=== PATIENT | female | born 1970 | race Caucasian/White ===

== ENCOUNTER → 2017-02-14 | Outpatient (CLI) | payer BC ==
[~2017-02-14] MED LIST: ALBU1AER9 INH; ASPI-390 PO; MONT1TAB3 PO; OMEP20CA59 PO; RIZA10TA19 PO; SYMIN160 INH; TOPI25TA55 PO
--- NOTE | 2017-02-14 16:40 | MAMMOGRAPHY REPORT ---
BILATERAL DIGITAL SCREENING MAMMOGRAM TOMOSYNTHESIS WITH CAD: 02/14/2017 CLINICAL HISTORY: Routine screening. Patient has no complaints. TECHNIQUE: Breast tomosynthesis in addition to standard 2D mammography was performed. Current study was also evaluated with a Computer Aided Detection (CAD) system. COMPARISON: Comparison is made to exams dated: 12/04/2015 mammogram, 07/28/2015 mammogram, 12/25/2014 m ammogram, 12/16/2014 mammogram, 12/02/2014 mammogram, and 07/10/2013 mammogram - [facility]. BREAST COMPOSITION: There are scattered areas of fibroglandular density in both breasts. FINDINGS: There is a stable ribbon shaped metallic biopsy marker in the upper outer middle one third of the left breast. No new suspicious mass, architectural distortion or cluster of microcalcificat ions is seen. IMPRESSION: ACR BI-RADS CATEGORY 1: NEGATIVE There is no mammographic evidence of malignancy. A 1 year screening mammogram is recommended. The p atient will receive written notification of the results. Approximately 10% of breast cancers are not detected with mammography. A negative mammographic repor t should not delay biopsy if a clinically suggestive mass is present. Yaa Quezada M.D. ay/:02/14/2017 16:00:23 Concrete Curer: Yudith CYR(Xenia)(Quentin)(BD), [facility] letter sent: Normal 1/2 BI-RADS Code: ACR BI-RADS Category 1: Negative
== END | disposition home or self-care (01) ==
LOC: C.MAMM 10:43
PROVIDERS: ATTEND Family Medicine
DX: Z12.31 Encounter for screening mammogram for malignant neoplasm of breast (principal)

== ENCOUNTER → 2017-09-28 | Outpatient (CLI) | payer OTHER ==
--- NOTE | 2017-09-28 15:24 | DIAGNOSTIC IMAGING REPORT ---
L HIP UNILATERAL 2 VIEWS CLINICAL HISTORY: L GROIN PAIN pain COMPARISON: None. DISCUSSION: The bones and joint spaces appear intact. There is no evidence of fracture, dislocation or bony disease. There is no evidence for soft tissue swelling. IMPRESSION: Negative study. The above report was generated using voice recognition software. It may contain grammatical, syntax or spelling errors. Electronically signed by: Cy Mitchell M.D. 09/28/2017 3:23 PM Dictated Date/Time: 09/28/2017 3:22 PM
== END | disposition home or self-care (01) ==
LOC: C.RAD1850 15:05
PROVIDERS: ATTEND Family Medicine
DX: R10.32 Left lower quadrant pain (principal)

== ENCOUNTER 2019-06-04 04:38 | Observation (INO) ==
[2019-06-04] MEDS ORDERED: MoRPHine SULFATE 10 MG/ML CARP/VIAL IV STA (04:56)
[2019-06-04] MEDS ORDERED: ONDANSETRON INJ 2 MG/ML 2 ML VIAL IV STA (04:56)
[2019-06-04] MEDS ORDERED: SODIUM CHLORIDE 0.9% 1000ML 1,000 ML IV ONE (04:56)
--- NOTE | 2019-06-04 05:02 | Emergency Department Note ---
History of Present Illness General Chief complaint: Chest Pain Stated complaint: CHEST PAIN, SOB Source: patient Mode of arrival: ambulatory Limitations: no limitations History of Present Illness Maximum Pain Intensity: 9 This patient is a 48-year-old female who presents to the emergency department complaining of chest pain. Patient states that the pain woke her up from sleep 4 hours ago. She states the pain is a pressure squeezing sensation in her chest and radiates into the upper abdomen. She rates the discomfort a 9/10. She states she is somewhat dizzy and short of breath due to the pain. She states th at she had a similar episode of symptoms 2 weeks ago which lasted for a few hours and then resolved on its own. She has not taken any medications at home. She denies any other episodes of pain. She states that both episodes have occurred in the middle of the night. Patient has a history of asthma but is otherwise healthy. She reports a recent intentional weight loss of 50 pounds. She is not a smoker. She denies recent travel. She states that nothing makes the pain better or worse. She reports a family history of stroke in her father and 2 grandparents. She denies any nausea/vomiting or fevers. Home Medications Home Medications Medication Instructions Recorded Confirmed Type albuterol sulfate 2 puff INHALATION Q4 PRN 06/04/19 06/04/19 History albuterol sulfate 2.5 mg INHALATION DIRECTED PRN 06/04/19 06/04/19 History [id number]-[id number] 2 tab PO Q6H PRN 06/04/19 06/04/19 History [Excedrin Migraine] Allergies Allergy/AdvReac Type Severity Reaction Status Date / Time Penicillins Allergy Intermediate hives Verified 06/04/19 05:06 aspirin AdvReac Mild nose bleeds Verified 06/04/19 05:06 Past Med/Surg History Medical History Asthma H/O: hysterectomy Family History Father Stroke Social History Preferred Language: Salvadorean Communication Ability: Effective Kiln Setter Required: No Beliefs That Will Affect Care: None Current Living Situation: Spouse and Family Feels Safe at Home: Yes Smoking Status: Never smoker Second Hand Exposure: No ; Hx Alcohol Use: No Hx Substance Use: No Review of Systems A total of 10 systems reviewed and were otherwise negative Physical Exam Vital Signs Vital Signs - 24 hr 06/04/19 06:03 Pulse Rate [Apical] 64 Respiratory Rate 16 Blood Pressure [Left Arm] 117/44 L Blood Pressure Mean [Left Arm] 68 VITALS: Vitals are noted on the nurse's note and reviewed by myself. Vital signs stable. GENERAL: This is a 48-year-old female, in no acute distress, nondiaphoretic, well-developed well-nourished. SKIN: The skin was without rashes. EARS: External auditory canals clear, tympanic membranes pearly ferguson without erythema or effusion bilaterally. EYES: Pupils equal round and reactive to light and accommodation. MOUTH: Mucous membranes moist. Tonsils are not enlarged. Pharynx without erythema or exudate. NECK: Supple without nuchal rigidity. No lymphadenopathy. HEART: Regular rate and rhythm without murmurs gallops or rubs. LUNGS: Clear to auscultation bilaterally without wheezes, rales or rhonchi. No retractions or accessory muscle use. ABDOMEN: Positive bowel sounds x 4. Patient has significant tenderness to palpation in the right upper quadrant and epigastric region. No guarding or rebound tenderness. NEURO: Patient was alert and oriented to person place and time. Course Administered Medications Acetaminophen (Tylenol) 650 mg PO Q4H PRN PRN Reason: pain/fever Stop: 07/04/19 07:30 Last Admin: 06/04/19 23:46 Dose: 650 mg Documented by: [id number] Lactated Ringer's (Lr) 1,000 mls @ 125 mls/hr IV .Q8H HORACIO Stop: 07/04/19 07:30 Last Admin: 06/05/19 03:23 Dose: 125 mls/hr Documented by: [id number] Infusion: 06/05/19 03:23 Dose: 125 mls/hr Documented by: [id number] Admin: 06/04/19 19:23 Dose: 125 mls/hr Documented by: [id number] Infusion: 06/04/19 16:39 Dose: 125 mls/hr Documented by: [id number] Admin: 06/04/19 08:39 Dose: 125 mls/hr Documented by: [id number] Morphine Sulfate (Morphine Sulfate) 4 mg IV Q1H PRN PRN Reason: Pain Stop: 06/18/19 18:19 Last Admin: 06/05/19 04:02 Dose: 4 mg Documented by: [id number] Ondansetron HCl (Zofran) 4 mg IV Q6H PRN PRN Reason: Nausea Stop: 07/04/19 07:30 Last Admin: 06/04/19 10:49 Dose: 4 mg Documented by: [id number] Pantoprazole Sodium (Protonix) 40 mg PO QAM HORACIO Stop: 07/04/19 08:59 Last Admin: 06/04/19 13:11 Dose: 40 mg Documented by: [id number] Discontinued Medications Bupivacaine HCl (Marcaine 0.5% Mpf) Confirm Administered Dose 30 ml .ROUTE .STK- MED ONE Stop: 06/04/19 15:43 Last Admin: 06/04/19 17:04 Dose: 22 ml Documented by: [id number] Hydromorphone HCl (Dilaudid) 1 mg IV NOW STA Stop: 06/04/19 05:47 Last Admin: 06/04/19 05:48 Dose: 1 mg Documented by: [id number] Sodium Chloride (Nss 1000ml) 1,000 mls @ 999 mls/hr IV .Q1H1M ONE Stop: 06/04/19 05:56 Last Infusion: 06/04/19 06:20 Dose: 0 mls/hr Documented by: [id number] Admin: 06/04/19 05:03 Dose: 999 mls/hr Documented by: [id number] Clindamycin Phosphate 900 mg/ (Dextrose) 56 mls @ 112 mls/hr IV NOW STA Stop: 06/04/19 16:30 Last Infusion: 06/04/19 19:19 Dose: 0 mls/hr Documented by: [id number] Admin: 06/04/19 16:14 Dose: 112 mls/hr Documented by: [id number] Morphine Sulfate (Morphine Sulfate) 6 mg IV NOW STA Stop: 06/04/19 04:57 Last Admin: 06/04/19 05:03 Dose: 6 mg Documented by: [id number] Morphine Sulfate (Morphine Sulfate) 4 mg IV Q3H PRN PRN Reason: Severe Pain Stop: 06/18/19 07:30 Last Admin: 06/04/19 11:51 Dose: 4 mg Documented by: [id number] Ondansetron HCl (Zofran) 4 mg IV NOW STA Stop: 06/04/19 04:57 Last Admin: 06/04/19 05:03 Dose: 4 mg Documented by: [id number] Medical Decision Making Differential Diagnosis Differential diagnosis includes acute coronary syndrome, pulmonary embolism, pneumothorax, cholecystitis, pericarditis, myocarditis, endocarditis, anxiety, musculoskeletal pain, GERD, costochondritis, pneumonia, among others. Home Medications Current Medication List: was personally reviewed by me Laboratory Data Attestation: I reviewed the patient's lab results. Result diagrams: 06/04/19 04:50 06/04/19 04:50 Lab Results 06/04/19 06/04/19 Range/Units 04:50 04:50 WBC 15.09 H (4.8-10.8) K/uL RBC 4.98 (4.2-5.4) M/uL Hgb 15.1 (12.0-16.0) g/dL Hct 43.8 (37-47) % MCV 88.0 (80-100) fL MCH 30.3 (25-34) pg MCHC 34.5 (32-36) g/dL RDW Std Deviation 46.5 H (36.4-46.3) fL RDW Coeff of Leann 14.5 (11.5-14.5) % Plt Count 273 (130-400) K/uL MPV 10.1 (7.4-10.4) fL Immature Gran % (Auto) 0.3 % Neut % (Auto) 71.4 % Lymph % (Auto) 19.5 % Morton % (Auto) 6.4 % Eos % (Auto) 2.1 % Baso % (Auto) 0.3 % Immature Gran # (Auto) 0.04 H (0.00-0.02) K/uL Neut # (Auto) 10.77 H (1.4-6.5) K/uL Lymph # (Auto) 2.94 (1.2-3.4) K/uL Morton # (Auto) 0.97 H (0.11-0.59) K/uL Eos # (Auto) 0.32 (0-0.5) K/uL Baso # (Auto) 0.05 (0-0.2) K/uL Sodium 139 (136-145) mmol/L Potassium 4.1 (3.5-5.1) mmol/L Chloride 107 (98-107) mmol/L Carbon Dioxide 26 (21-32) mmol/L Anion Gap 6.0 (3-11) BUN 16 (7-18) mg/dl Creatinine 0.71 (0.6-1.2) mg/dl Est Cr Clr Drug Dosing 87.9 ml/min Est GFR ( Amer) 116.7 Est GFR (Non-Af Amer) 100.7 BUN/Creatinine Ratio 22.3 H (10-20) Glucose 124 H (70-99) mg/dl Calcium 8.3 L (8.5-10.1) mg/dl Total Bilirubin 0.3 (0.2-1) mg/dl AST 14 L (15-37) U/L ALT 22 (12-78) U/L Alkaline Phosphatase 112 (45-117) U/L Troponin I < 0.015 (0-0.045) ng/ml Total Protein 7.1 (6.4-8.2) gm/dl Albumin 3.5 (3.4-5.0) gm/dl Globulin 3.6 (2.5-4.0) gm/dl Albumin/Globulin Ratio 1.0 (0.9-2) Lipase 148 (73-393) U/L Imaging Data Attestation: I personally reviewed and interpreted this imaging study as follows: Radiologist's Impression: US RUQ: Cholelithiasis including at least one nonmobile 10 mm calculus present in either the gallbladder neck or cystic duct. No gallbladder wall thickening or biliary ductal dilatation. Trace pericholecystic fluid is present and sonographic Knutson's sign is described as positive. Imaging findings are somewhat equivocal but do not clearly meet sonographic criteria for acute cholecystitis given lack of wall thickening. However, biliary colic related to the gallbladder neck/cystic duct stone or early changes of acute cholecystitis are not entirely excluded in the appropriate clinical setting. Consider nuclear medicine HIDA scan for further evaluation if clinically indicated. Mild fullness of the right renal pelvis without calyceal dilation. No pancreatic duct dilation. Radiologist: Valerio Parham M.D. Blood Pressure Blood Pressure Findings: Normal blood pressure Blood Pressure Disposition: did not require urgent referral MDM Narrative The patient is a 48-year-old female who presents today complaining of chest pain. On exam, patient has significant tenderness to palpation in the epigastric region and right upper quadrant. Labs revealed a leukocytosis of 15,000, no concerning anemia or elect light of normalities. Troponin was not elevated. LFTs within normal limits. Lipase was not elevated. Gallbladder ultrasound was obtained and reveals cholelithiasis with a nonmobile duct at the gallbladder neck or cystic duct. Patient also has trace pericholecystic fluid and borderline wall thickening. This warrants admission for further evaluation and probable MRCP/ERCP. Case [facility] for further evaluation and care. Impression & Plan Acute calculous cholecystitis Discharge Plan Visit Data *Final* Discharge Date/Time: 06/04/19 06:34 Chief Complaint: Chest Pain Stated Complaint: CHEST PAIN, SOB ED Provider: Miguel Soto ED Midlevel Provider: Renea Chase Discharge Problem: Acute calculous cholecystitis Patient Disposition: Admitted As Inpatient Discharge Instructions Interventions: ED Discharge Assessment Last Done: 06/04/19 06:34
[2019-06-04 05:17] LABS: Basophils # (auto) 0.05 K/uL (0-0.2); Basophils % (auto) 0.3 %; Eosinophils # (auto) 0.32 K/uL (0-0.5); Eosinophils % (auto) 2.1 %; Hematocrit (blood only) 43.8 % (37-47); Hemoglobin 15.1 g/dL (12.0-16.0); Immature Granulocytes # (auto) 0.04 K/uL (0.00-0.02); Immature Granulocytes % (auto) 0.3 %; Lymphocytes # (auto) 2.94 K/uL (1.2-3.4); Lymphocytes % (auto) 19.5 %; Mean Corpuscular Hgb Conc 34.5 g/dL (32-36); Mean Platelet Volume 10.1 fL (7.4-10.4); Monocytes # (auto) 0.97 K/uL (0.11-0.59); Monocytes % (auto) 6.4 %; Neutrophils # (auto) 10.77 K/uL (1.4-6.5); Neutrophils % (auto) 71.4 %; Platelet Count 273 K/uL (130-400); RDW Coefficient of Variation 14.5 % (11.5-14.5); RDW Standard Deviation 46.5 fL (36.4-46.3); Red Blood Count 4.98 M/uL (4.2-5.4); White Blood Count 15.09 K/uL (4.8-10.8)
[2019-06-04 05:37] LABS: Alanine Aminotransferase 22 U/L (12-78); Albumin Level 3.5 gm/dl (3.4-5.0); Aspartate Aminotransferase 14 U/L (15-37); BUN Creatinine Ratio 22.3 (10-20); Blood Urea Nitrogen 16 mg/dl (7-18); Calcium 8.3 mg/dl (8.5-10.1); Carbon Dioxide 26 mmol/L (21-32); Chloride 107 mmol/L (98-107); Creatinine Clr Calc Pharmacy 87.9 ml/min; Est GFR (African American) 116.7; Est GFR (Non-African American) 100.7; Glucose 124 mg/dl (70-99); Potassium 4.1 mmol/L (3.5-5.1); Sodium 139 mmol/L (136-145)
[2019-06-04 05:41] LABS: Alkaline Phosphatase 112 U/L (45-117); Bilirubin,Total 0.3 mg/dl (0.2-1); Globulin 3.6 gm/dl (2.5-4.0); Total Protein 7.1 gm/dl (6.4-8.2); Troponin I < 0.015 ng/ml (0-0.045)
[2019-06-04] MEDS ORDERED: HYDROmorphone INJ 1 MG/ML SYRINGE IV STA (05:46)
--- NOTE | 2019-06-04 06:33 | XRay Report ---
XR chest 1V portable CLINICAL HISTORY: Chest pain. COMPARISON STUDY: No previous studies for comparison. FINDINGS: Lung volumes are normal. Lungs are clear. There is no pneumothorax or pleural effusion. Car diac size is normal. Mediastinal contours are normal. There is no evidence for pulmonary edema. IMPRESSION: No acute cardiopulmonary findings. Electronically signed by: Tonny Hedrick M.D. 06/04/2019 6:31 AM
--- NOTE | 2019-06-04 06:50 | Ultrasound Report ---
US gallbladder CLINICAL HISTORY: Right upper quadrant pain. COMPARISON STUDY: No previous studies for comparison. FINDINGS: Liver morphology is normal. No hepatic lesions are present. There is no biliary ductal dila tation. The common bile duct measures 5 mm in caliber. There are multiple gallstones within the gallb ladder. There is a 1.1 cm stone within the gallbladder neck versus cystic duct. Trace pericholecystic fluid is noted. The gallbladder is mildly distended. Sonographic Knutson sign was reported. No gallbl adder wall thickening is noted. The pancreatic body is normal. The head and tail are partially obscur ed. There is no right hydronephrosis. The right renal pelvis is prominent. IMPRESSION: 1. Cholelithiasis, including a 1.1 cm calculus within the gallbladder neck versus cystic duct. Positi ve sonographic Knutson sign. No gallbladder wall thickening. These findings are equivocal and acute ch olecystitis cannot be excluded. A hepatobiliary scan could be obtained. 2. No biliary ductal dilatation. Electronically signed by: Tonny Hedrick M.D. 06/04/2019 6:48 AM
--- NOTE | 2019-06-04 07:00 | History & Physical Report ---
Date of Service June 04, 2019 Assessment & Plan (1) Abdominal pain, RUQ (right upper quadrant): NPO except sips and chips Pain and nausea control. Present on Admission?: Yes (2) Choledocholithiasis with acute cholecystitis: Gallbladder US done in ED showing "1.1 cm calculus within the gallbladder neck versus cystic duct". Will order MRCP. Present on Admission?: Yes (3) Asthma: PRN albuterol nebs. Present on Admission?: No History of Present Illness 48 y/o female presented to the ED with a sudden onset of 9/10 mid chest and RUQ abdominal pain. There was no radiation to the left arm or the neck. She is noticing nausea at this time, but has had no vomiting. She had a similar episode 2 weeks prior, but symptoms resolved by am. She has had an intentional weight loss of 50 lbs. No F/C, cough, SOB, dysuria, or urinary frequency. Primary Care Provider: Alisha Nuñez MD Allergies Allergy/AdvReac Type Severity Reaction Status Date / Time Penicillins Allergy Intermediate hives Verified 06/04/19 05:06 aspirin AdvReac Mild nose bleeds Verified 06/04/19 05:06 Home Medications Home Medications Medication Instructions Recorded Confirmed Type albuterol sulfate 2 puff INHALATION Q4 PRN 06/04/19 06/04/19 History albuterol sulfate 2.5 mg INHALATION DIRECTED PRN 06/04/19 06/04/19 History [id number]-[id number]-[id number] 2 tab PO Q6H PRN 06/04/19 06/04/19 History [Excedrin Migraine] Past Med/Surg History Medical History Asthma Family History Father Stroke Social History Preferred Language: Malian Feels Safe at Home: Yes Smoking Status: Never smoker Review of Systems Constitutional: no fever, no chills and no body aches Eyes: no dry eyes and no eye pain Ear, Nose, Mouth, Throat: + dizziness (Mild sensation when the pain is severe. ) Respiratory: no cough, no dyspnea on exertion, no hemoptysis and no wheezing Cardiovascular: no chest pain with activity, no palpitations, no syncope and no edema Gastrointestinal: + abdominal pain (RUQ and to epigastric area) and + heartburn; no vomiting, no diarrhea/loose stools and no blood in stools Musculoskeletal: no joint pain and no stiffness Integumentary: no rash and no yellowing of the skin Neurologic: no localized weakness, no syncope and no headache(s) Psychiatric: no depression and no anxiety Hematologic / Lymphatic: no easy bruising and no night sweats Physical Exam Constitutional: + ill appearing and cooperative Eyes: PERRL, conjunctivae normal, anicteric sclerae ENMT: external ear and nose normal, oropharynx normal Neck: trachea midline, no thyromegaly Respiratory: normal respiratory effort, lungs clear to auscultation Auscultation: no crackles, no rhonchi and no wheezes Cardiovascular: RRR, no murmur, no edema Gastrointestinal (Abdomen): Inspection/Auscultation: normal bowel sounds Percussion/Palpation: + abdomen tender (RUQ) and abdomen soft Musculoskeletal: no cyanosis or clubbing, extremities motor strength 5/5 Skin: no rashes, warm and dry no jaundice Neurologic: CN's II-XI intact bilaterally; no focal motor deficits Psychiatric: A+Ox3, euthymic affect Lymphatic: no cervical or axillary lymphadenopathy Results & Data Vital Signs (Past 12 Hours) Vital Signs Temp Pulse Pulse Resp BP BP Pulse Ox 06/04/19 06:34 57 L 16 120/51 L 96 06/04/19 06:03 64 16 117/44 L 06/04/19 04:40 36.7 C 66 20 136/70 99 Labs and CXR results reviewed. Code Status & VTE Plan VTE Prophylaxis Plan VTE Prophylaxis will be ordered: Yes PG Care Time/CCT Total # of Minutes Spent Total Time Spent: 40 Total Time Spent with Patient: Total time spent is greater than 50% in coordination of care (as documented) at patient's floor/unit and/or counseling patient:
[2019-06-04] MEDS ORDERED: ACETAMINOPHEN 325 MG TAB PO PRN (07:31)
[2019-06-04] MEDS ORDERED: MoRPHine SULFATE 4 MG/ML 1 ML CARP\\VIAL IV PRN ×2 (07:31→18:20)
[2019-06-04] MEDS ORDERED: MoRPHine SULFATE 2 MG/ML CARP IV PRN (07:31)
[2019-06-04] MEDS ORDERED: ONDANSETRON INJ 2 MG/ML 2 ML VIAL IV PRN (07:31)
[2019-06-04] MEDS ORDERED: ALBUTEROL 0.083% NEBU SOLN 3 ML VIAL NEB PRN (07:31)
--- NOTE | 2019-06-04 07:50 | Family Medicine Progress Note ---
Date of Service June 04, 2019 Assessment & Plan (1) Abdominal pain, RUQ (right upper quadrant): 48F here for acute severe RUQ pain with evidence of "1.1 cm calculus within the gallbladder neck versus cystic duct" on US. Plan: NPO except meds Fluid hydration Pain control (morphine PRN, tylenol) For MRCP FEN/GI: npo, LR at 120ml/hr DVT ppx: SCDs while awaiting possible surgery CODE STATUS: FULL DISPO: MED/SURG Other medical problems: Asthma-continue rescue inhaler Migraines-hold excedrin Results & Data Vital Signs (Past 12 Hours) Vital Signs Temp Pulse Pulse Pulse Resp BP BP 06/04/19 07:33 36.6 C 64 16 114/64 06/04/19 06:34 57 L 16 120/51 L 06/04/19 06:03 64 16 117/44 L 06/04/19 04:40 36.7 C 66 20 136/70 Pulse Ox 06/04/19 07:33 98 06/04/19 06:34 96 06/04/19 06:03 06/04/19 04:40 99 PG Care Time/CCT Total # of Minutes Spent Total Time Spent with Patient: Total time spent is greater than 50% in coordination of care (as documented) at patient's floor/unit and/or counseling patient:
[2019-06-04] MEDS ORDERED: ALBUTEROL HFA 8 GM INHALER INH PRN (07:52)
[2019-06-04] MEDS: LACTATED RINGER'S 1,000 ML IV SCH ×2 (08:39→19:23)
[2019-06-04 08:43] LABS: Appearance Urine Clear (Clear); Bilirubin Urine Negative (Negative); Blood Urine Negative (Negative); Color Urine Yellow; Glucose Urine UA Negative (Negative); Ketones Urine Negative (Negative); Leukocyte Esterase Urine Negative (Negative); Nitrite Urine Negative (Negative); Protein Urine Negative (Negative); Urobilinogen Urine Negative (Negative); pH Urine 6.5 (4.5-7.5)
--- NOTE | 2019-06-04 11:14 | Family Medicine Progress Note ---
Date of Service June 04, 2019 Assessment & Plan (1) Abdominal pain, RUQ (right upper quadrant): 48F here for acute severe RUQ pain with evidence of "1.1 cm calculus within the gallbladder neck versus cystic duct" on US. Plan: NPO except meds Fluid hydration Pain control (morphine PRN, tylenol) Has a gallstone 1.1mm in cystic duct. MRCP today and results will determine next steps. FEN/GI: npo, LR at 120ml/hr DVT ppx: SCDs while awaiting possible surgery CODE STATUS: FULL DISPO: MED/SURG Other medical problems: Asthma-continue rescue inhaler Migraines-hold excedrin Supervising Physician Co-Signing Physician Notes Attending attestation Pt seen and examined in concert with Dr. Galeano. In agreement with the documented findings as noted in the resident documentation with any exceptions or additions as noted here. RUQ pain reproducible on palpation with improved but persistent nausea and overall fatigue/malaise. MRCP suspicious for choledocolithiasis. Choledocolithiasis with cholecystitis - surgical consultation - IV abx therapy w/ clindamycin. Pain control. NPO per surgical team. Else see resident documentation as noted. Subjective She notes that her RUQ pain is improved with remaining still and worse with movements. She notes still in bed but it is made better with analgesics. Other junior no acute concerns, no fevers, no chills, no shortness of breath. Physical Exam Constitutional: WD/WN, vitals as above cooperative and comfortable Eyes: + anicteric sclerae ENMT: external ear and nose normal, oropharynx normal Neck: normal visual inspection and trachea midline Respiratory: normal respiratory effort, lungs clear to auscultation Cardiovascular: RRR, no murmur, no edema Gastrointestinal (Abdomen): Percussion/Palpation: + abdomen tender (mild RUQ, no rebound) and abdomen soft; no guarding and abdomen not rigid Musculoskeletal: Head/Neck/Chest: normocephalic and head atraumatic Skin: no rashes, warm and dry Neurologic: moves all extremities and awake Results & Data Vital Signs (Past 12 Hours) Vital Signs Temp Pulse Pulse Pulse Resp BP BP 06/04/19 07:33 36.6 C 64 16 114/64 06/04/19 06:34 57 L 16 120/51 L 06/04/19 06:03 64 16 117/44 L 06/04/19 04:40 36.7 C 66 20 136/70 Pulse Ox 06/04/19 07:33 98 06/04/19 06:34 96 06/04/19 06:03 06/04/19 04:40 99 Laboratory Results Laboratory Results - last 24 hr 06/04/19 06/04/19 06/04/19 04:50 04:50 08:34 WBC 15.09 H RBC 4.98 Hgb 15.1 Hct 43.8 MCV 88.0 MCH 30.3 MCHC 34.5 RDW Std Deviation 46.5 H RDW Coeff of Leann 14.5 Plt Count 273 MPV 10.1 Immature Gran % (Auto) 0.3 Neut % (Auto) 71.4 Lymph % (Auto) 19.5 [place] % (Auto) 6.4 Eos % (Auto) 2.1 Baso % (Auto) 0.3 Immature Gran # (Auto) 0.04 H Neut # (Auto) 10.77 H Lymph # (Auto) 2.94 [place] # (Auto) 0.97 H Eos # (Auto) 0.32 Baso # (Auto) 0.05 Sodium 139 Potassium 4.1 Chloride 107 Carbon Dioxide 26 Anion Gap 6.0 BUN 16 Creatinine 0.71 Est Cr Clr Drug Dosing 87.9 Est GFR ( Amer) 116.7 Est GFR (Non-Af Amer) 100.7 BUN/Creatinine Ratio 22.3 H Glucose 124 H Calcium 8.3 L Total Bilirubin 0.3 AST 14 L ALT 22 Alkaline Phosphatase 112 Troponin I < 0.015 Total Protein 7.1 Albumin 3.5 Globulin 3.6 Albumin/Globulin Ratio 1.0 Lipase 148 Urine Color Urine Appearance Urine pH Ur Specific [place] Urine Protein Urine Glucose (UA) Urine Ketones Urine Blood Urine Nitrite Urine Bilirubin Urine Urobilinogen Ur Leukocyte Esterase POC Ur Test Cancelled 06/04/19 08:34 WBC RBC Hgb Hct MCV MCH MCHC RDW Std Deviation RDW Coeff of Leann Plt Count MPV Immature Gran % (Auto) Neut % (Auto) Lymph % (Auto) [place] % (Auto) Eos % (Auto) Baso % (Auto) Immature Gran # (Auto) Neut # (Auto) Lymph # (Auto) [place] # (Auto) Eos # (Auto) Baso # (Auto) Sodium Potassium Chloride Carbon Dioxide Anion Gap BUN Creatinine Est Cr Clr Drug Dosing Est GFR ( Amer) Est GFR (Non-Af Amer) BUN/Creatinine Ratio Glucose Calcium Total Bilirubin AST ALT Alkaline Phosphatase Troponin I Total Protein Albumin Globulin Albumin/Globulin Ratio Lipase Urine Color Yellow Urine Appearance Clear Urine pH 6.5 Ur Specific [place] 1.020 Urine Protein Negative Urine Glucose (UA) Negative Urine Ketones Negative Urine Blood Negative Urine Nitrite Negative Urine Bilirubin Negative Urine Urobilinogen Negative Ur Leukocyte Esterase Negative POC Ur Test Medications Administered Lactated Ringer's (Lr) 1,000 mls @ 125 mls/hr IV .Q8H HORACIO Stop: 07/04/19 07:30 Last Admin: 06/04/19 08:39 Dose: 125 mls/hr Documented by: [id number] Ondansetron HCl (Zofran) 4 mg IV Q6H PRN PRN Reason: Nausea Stop: 07/04/19 07:30 Last Admin: 06/04/19 10:49 Dose: 4 mg Documented by: [id number] PG Care Time/CCT Total # of Minutes Spent Total Time Spent with Patient: Total time spent is greater than 50% in coordination of care (as documented) at patient's floor/unit and/or counseling patient: Resident Activity Tracking Resident Involvement: Resident Care Provided Care Provided: Adult Hospital Medicine
--- NOTE | 2019-06-04 12:55 | Magnetic Resonance Report ---
MRCP CLINICAL HISTORY: Choledocholithiasis. TECHNIQUE: Utilizing a 1.5 Amaris magnet and dedicated coil, multiplanar, multiecho imaging of the [facility] er abdomen was performed utilizing heavily T2 weighted pulsing sequences without IV contrast. COMPARISON STUDY: Right upper quadrant ultrasound performed earlier today. FINDINGS: There is no biliary ductal dilatation. No common bile duct calculi are identified. The cour se and caliber of the main pancreatic duct is normal. There is no peripancreatic infiltration or flui d. Liver morphology is normal. No hepatic lesions are identified on this unenhanced examination. Ther e are numerous gallstones within the gallbladder measure up to 1.5 cm. Gallbladder wall thickening is noted with pericholecystic fluid. The gallbladder is mildly distended. A few T2 hyperintense left re nal lesions are suboptimally assessed on this unenhanced exam but statistically reflect cysts. There is no hydronephrosis. Unenhanced images of the spleen, adrenal glands are unremarkable. Caliber of vi sualized small and large bowel are normal. IMPRESSION: 1. Findings highly suggestive of acute cholecystitis. Cholelithiasis, gallbladder wall thickening and pericholecystic fluid. 2. No biliary ductal dilatation. No common bile duct calculi. Electronically signed by: Tonny Hedrick M.D. 06/04/2019 12:54 PM
[2019-06-04] MEDS: PANTOprazole 40 MG TAB PO SCH (13:11)
--- NOTE | 2019-06-04 15:14 | Surgery Consultation ---
Date of Consultation June 04, 2019 Assessment & Plan (1) Acute cholecystitis: Acute cholecystitis with stone in gallbladder neck. Will plan for laparoscopic cholecystectomy this evening. Supervising Physician Co-Signing Physician Notes Patient seen and examined, labs and imaging reviewed, agree with above. 48-year-old female presented to the emergency department this morning with significant abdominal pain, ultrasound showed cholecystitis with a gallstone in the gallbladder neck or cystic duct. Patient was admitted to the medicine service and MRCP was performed and was negative for choledocholithiasis. On exam she is tender to palpation epigastric and right upper quadrant with localized guarding. Vital signs are stable, labs unremarkable. Plan for laparoscopic cholecystectomy, possible cholangiogram There is the procedure were discussed to include but not limited to bleeding, infection, retained stone, bile leak, damage surrounding structures, need for future or more extensive surgery, conversion open, and the risk of anesthesia The diagnosis, details the procedure and recovery, and plan of care discussed the patient, all questions were answered, the patient expressed understanding agrees the plan of care as stated. History of Present Illness Attending Physician: Deniz Zambrano MD History of Present Illness 48 y/o female with second attack RUQ pain last night after eating chicken and salad for dinner. Seen in ER overnight, admitted to medicine this morning. MRCP was obtained and was normal. She had a similar attack over Labor Day weekend that resolved but her pain this time has continued. Allergies Allergy/AdvReac Type Severity Reaction Status Date / Time Penicillins Allergy Intermediate hives Verified 06/04/19 05:06 aspirin AdvReac Mild nose bleeds Verified 06/04/19 05:06 Patient History Medical History Asthma H/O: hysterectomy Family History Father Stroke Social History Preferred Language: German Communication Ability: Effective [employer] Specialist Required: No Beliefs That Will Affect Care: None Current Living Situation: Spouse and Family Feels Safe at Home: Yes Smoking Status: Never smoker Second Hand Exposure: No ; Hx Alcohol Use: No Hx Substance Use: No Review of Systems Constitutional: + weight loss; no fever and no chills Cardiovascular: + chest pain (epigastric, RUQ) Gastrointestinal: + abdominal pain; no bloating, no nausea and no vomiting Physical Exam Constitutional: WD/WN, vitals as above Respiratory: normal respiratory effort, lungs clear to auscultation Cardiovascular: RRR, no murmur, no edema Gastrointestinal (Abdomen): Inspection/Auscultation: abdomen not distended Percussion/Palpation: + abdomen tender (RUQ) and abdomen soft Results & Data Vital Signs (Past 12 Hours) Vital Signs Temp Pulse Pulse Pulse Resp BP BP 06/04/19 14:54 36.4 C L 55 L 20 108/68 06/04/19 07:33 36.6 C 64 16 114/64 06/04/19 06:34 57 L 16 120/51 L 06/04/19 06:03 64 16 117/44 L 06/04/19 04:40 36.7 C 66 20 136/70 Pulse Ox 06/04/19 14:54 97 06/04/19 07:33 98 06/04/19 06:34 96 06/04/19 06:03 06/04/19 04:40 99 Diagnostic Findings US gallbladder CLINICAL HISTORY: Right upper quadrant pain. COMPARISON STUDY: No previous studies for comparison. FINDINGS: Liver morphology is normal. No hepatic lesions are present. There is no biliary ductal dilatation. The common bile duct measures 5 mm in caliber. There are multiple gallstones within the gallbladder. There is a 1.1 cm stone within the gallbladder neck versus cystic duct. Trace pericholecystic fluid is noted. The gallbladder is mildly distended. Sonographic Knutson sign was reported. No gallbladder wall thickening is noted. The pancreatic body is normal. The head and tail are partially obscured. There is no right hydronephrosis. The right renal pelvis is prominent. IMPRESSION: 1. Cholelithiasis, including a 1.1 cm calculus within the gallbladder neck versus cystic duct. Positive sonographic Knutson sign. No gallbladder wall thickening. These findings are equivocal and acute cholecystitis cannot be excluded. A hepatobiliary scan could be obtained. 2. No biliary ductal dilatation. Electronically signed by: Tonny Hedrick M.D. 06/04/2019 6:48 AM PG Care Time/CCT Total # of Minutes Spent Total Time Spent with Patient: Total time spent is greater than 50% in coordination of care (as documented) at patient's floor/unit and/or counseling patient:
[2019-06-04] MEDS ORDERED: BUPIVACAINE 0.5 % 5 MG/1 ML MPF 30ML VIAL ONE (15:42)
[2019-06-04] MEDS ORDERED: CLINDAMYCIN 900 MG in DEXTROSE 5% 50 ML IV STA (16:01)
--- NOTE | 2019-06-04 16:08 | Anesthesiology Consultation ---
Date of Service June 04, 2019 Assessment & Plan (1) Encounter for pre-operative examination: Chart Review Chart Review: Acceptable Risk for Surgery and Patient NOT seen in Pre Admission Testing Consults Requested none History Surgery Operation Date: 06/04/19 11:35 Proposed Procedures p Laparoscopic Cholecystectomy - Franko Layne DO, ARA Height/Weight Height: 5 ft 1 in Weight: 72 kg Allergies Allergy/AdvReac Type Severity Reaction Status Date / Time Penicillins Allergy Intermediate hives Verified 06/04/19 05:06 aspirin AdvReac Mild nose bleeds Verified 06/04/19 05:06 Medications Home Medications Medication Instructions Recorded Confirmed Last Taken albuterol sulfate 2 puff INHALATION Q4 PRN 06/04/19 06/04/19 Unknown albuterol sulfate 2.5 mg INHALATION DIRECTED PRN 06/04/19 06/04/19 Unknown [id number] 2 tab PO Q6H PRN 06/04/19 06/04/19 Unknown [Excedrin Migraine] Active Medications Generic Name Dose Route Start Last Admin Trade Name Freq PRN Reason Stop Dose Admin Lactated Ringer's 1,000 mls @ 125 mls/hr 06/04/19 07:31 06/04/19 08:39 Lr IV 07/04/19 07:30 125 mls/hr .Q8H HORACIO Administration Morphine Sulfate 4 mg 06/04/19 07:31 06/04/19 11:51 Morphine Sulfate IV 06/18/19 07:30 4 mg Q3H PRN Administration Severe Pain Ondansetron HCl 4 mg 06/04/19 07:31 06/04/19 10:49 Zofran IV 07/04/19 07:30 4 mg Q6H PRN Administration Nausea Pantoprazole Sodium 40 mg 06/04/19 09:00 06/04/19 13:11 Protonix PO 07/04/19 08:59 40 mg QAM HORACIO Administration NPO Date Last Intake of Fluids: 06/04/19 Time Last Intake of Fluids: 13:15 Last Intake of Fluids Comment: ice chips Date Last Intake of Solids: 06/03/19 Time Last Intake of Solids: 19:00 Last Intake of Solids Comment: grilled chicken salad Past Medical History Medical History Asthma H/O: hysterectomy Past Family History Family History Father Stroke Social History Smoking Status: Never smoker Do You Dip or Chew Tobacco: No Hx Alcohol Use: No Hx Substance Use: No substance use type: does not use Physical Exam Vital Signs Last Vital Signs Temp 37.0 C 06/04/19 15:40 Pulse 60 06/04/19 15:40 Resp 14 06/04/19 15:40 BP 113/42 L 06/04/19 15:40 Pulse Ox 96 06/04/19 15:40 Testing Laboratory Results 06/04/19 04:50 06/04/19 04:50 Urine Color Yellow 06/04/19 08:34 Urine Appearance Clear (Clear) 06/04/19 08:34 Urine pH 6.5 (4.5-7.5) 06/04/19 08:34 Ur Specific Floweree 1.020 (1.000-1.030) 06/04/19 08:34 Urine Protein Negative (Negative) 06/04/19 08:34 Urine Glucose (UA) Negative (Negative) 06/04/19 08:34 Urine Ketones Negative (Negative) 06/04/19 08:34 Urine Nitrite Negative (Negative) 06/04/19 08:34 Ur Leukocyte Esterase Negative (Negative) 06/04/19 08:34 06/04/19 08:34 POC Ur Test Cancelled
[2019-06-04] MEDS ORDERED: ePHEDrine sulfate 50 MG/ML AMP IV PRN (16:12)
[2019-06-04] MEDS ORDERED: ATROPINE SULFATE 0.1 MG/ML 10ML SYR IV PRN (16:12)
[2019-06-04] MEDS ORDERED: HYDROmorphone INJ 1 MG/ML SYRINGE IV PRN (16:12)
[2019-06-04] MEDS ORDERED: fentaNYL citrate 100 MCG/2 ML VIAL ONE (16:16)
[2019-06-04] MEDS ORDERED: ONDANSETRON INJ 2 MG/ML 2 ML VIAL ONE (16:32)
[2019-06-04] MEDS ORDERED: DEXAMETHASONE SOD INJ 4 MG/ML VIAL ONE (16:32)
[2019-06-04] MEDS ORDERED: GLYCOPYRROLATE 0.2 MG/ML VIAL ONE (16:32)
[2019-06-04] MEDS ORDERED: NEOSTIGMINE METHYLSULFATE 5 MG/5 ML SYR ONE (16:32)
[2019-06-04] MEDS ORDERED: PROPOFOL IV EMULSION 10 MG/ML 20 ML VIAL IV ONE (16:32)
[2019-06-04] MEDS ORDERED: ROCURONIUM BROMIDE 10 MG/ML 5 ML VIAL ONE (16:32)
[2019-06-04] MEDS ORDERED: LIDOCAINE HCL 2% 2 ML VIAL/AMP(20MG/ML) INFIL ONE (16:32)
--- NOTE | 2019-06-04 17:10 | Operative Report ---
Post Operative Report Pre & Post Diagnosis Operation Date: 06/04/19 11:35 Pre-Op Diagnosis: Acute Cholecystitis Post-Op Diagnosis: Acute Cholecystitis Procedure Operation Date: 06/04/19 11:35 Actual Procedures p Laparoscopic Cholecystectomy(Not Applicable) - Franko Layne DO, ARA Surgeon Franko Layne DO, ARA Sole Cementer Arturo Aguirre Estimated Blood Loss 6 Findings Consistent with Post-Op Diagnosis Acute cholecystitis. Critical view of safety obtained, cystic duct and artery doubly clipped and divided. Good hemostasis. Specimens Gallbladder Anesthesia Type General Complications none Disposition Accompanied Patient To Recovery: No Disposition: Recovery Room Indications 48-year-old female presented to the emergency department with acute onset abdominal pain 100 this morning. She had ultrasound that showed cholecystitis in the gallbladder and the cystic duct or gallbladder neck. She was admitted to the medicine service and had a MRCP performed which was negative. Plan for laparoscopic cholecystectomy with possible cholangio-gram. The risks of the procedure were discussed, all questions were answered, and the patient agreed to proceed with surgery as planned. Description of Procedure The patient was properly identified, consented, and taken to the operating room where she was placed in the supine position. General endotracheal anesthesia was induced. SCDs and a safety belt were placed. Preoperative antibiotics were administered. The patient's abdomen was prepped and draped in the standard sterile fashion. A surgical timeout was performed and all parties were in agreement that this was the correct patient and procedure to be performed and we continued as planned. An incision was made superior and to the left of the umbilicus overlying the rectus muscle and the Veress needle was inserted. Saline drop test confirmed entry into the peritoneum. The abdomen was insufflated with carbon dioxide which the patient tolerated without incident. The abdomen was then entered using the Optiview technique and a 5 mm trocar. The laparoscope was inserted and no damage from initial trocar or Veress needle placement was noted, no gross abnormalities were noted within the 4 quadrants of the abdomen. An 11 mm port was placed in the subxiphoid position and two 5 mm ports were then placed in the right subcostal position. The patient was placed in reverse Trendelenburg position and rotated towards the left. The gallbladder was acutely inflamed. The dome of the gallbladder was retracted towards the left upper quadrant and the infundibulum was retracted toward the right lower quadrant revealing Calot's triangle. Peritoneal attachments were taken down with electrocautery and blunt dissection. The cystic duct and artery were circumferentially dissected. A window of safety was obtained showing the cystic duct entering the gallbladder with no aberrant structures noted. The cystic duct and artery were doubly clipped and divided. The gallbladder was then lifted off the gallbladder fossa with electrocautery. The gallbladder was placed in an Endo Catch bag and removed through the subxyphoid port site. The right upper quadrant was irrigated and hemostasis was found to be good. 5 mm trochars were removed under direct visualization and the abdomen was allowed to collapse. The subxyphoid port site fascia was closed with 0 Vicryl suture. The wound was irrigated, and the skin of all ports was closed with 4-0 Monocryl subcuticular sutures. Dermabond was placed over the wounds. The patient was extubated in the operating room and taken to the PACU where she recovered without apparent incident. All sponge, instrument and needle counts were correct at the conclusion of the procedure. The patient tolerated the procedure well. The physician's lead assistant manager was present and scrubbed for the entirety of the case and was essential in positioning the patient, prepping and draping, retraction and exposure, driving the laparoscope, removal of the gallbladder, closure the incisions, and placement of the dressings. I attest to the content of the Intraoperative Record and any orders documented therein. Any exceptions are noted below.
--- NOTE | 2019-06-04 18:00 | Anesthesiology Progress Note ---
Date of Service June 04, 2019 Anesthesia Post Procedure Vital Signs Vital Signs: Temp Pulse Pulse Pulse Resp BP BP 06/04/19 17:50 36.8 C 58 L 15 114/62 06/04/19 17:40 60 20 121/56 L 06/04/19 17:30 59 L 16 127/51 L 06/04/19 17:20 36.3 C L 67 22 123/70 06/04/19 15:40 37.0 C 60 14 113/42 L 06/04/19 14:54 36.4 C L 55 L 20 108/68 06/04/19 07:33 36.6 C 64 16 114/64 06/04/19 06:34 57 L 16 120/51 L 06/04/19 06:03 64 16 117/44 L 06/04/19 04:40 36.7 C 66 20 136/70 Pulse Ox 06/04/19 17:50 98 06/04/19 17:40 100 06/04/19 17:30 100 06/04/19 17:20 100 06/04/19 15:40 96 06/04/19 14:54 97 06/04/19 07:33 98 06/04/19 06:34 96 06/04/19 06:03 06/04/19 04:40 99 Pain Intensity Abdomen: Pain Intensity: 0 Transfer of Care Handoff Completed per policy Notes Mental Status: alert / awake / arousable and participated in evaluation Patient Amnestic to Procedure: Yes Nausea / Vomiting: adequately controlled Pain: adequately controlled Airway Patency, RR, SpO2: stable & adequate BP & HR: stable & adequate Hydration State: stable & adequate Anesthetic Complications: no major complications apparent
[2019-06-05] MEDS: LACTATED RINGER'S 1,000 ML IV SCH ×2 (03:23→11:47)
[2019-06-05 05:56] LABS: Hematocrit (blood only) 39.5 % (37-47); Hemoglobin 13.2 g/dL (12.0-16.0); Mean Corpuscular Hgb Conc 33.4 g/dL (32-36); Mean Corpuscular Volume 87.4 fL (80-100); Mean Platelet Volume 10.1 fL (7.4-10.4); Platelet Count 244 K/uL (130-400); RDW Coefficient of Variation 14.5 % (11.5-14.5); RDW Standard Deviation 46.2 fL (36.4-46.3); Red Blood Count 4.52 M/uL (4.2-5.4); White Blood Count 16.96 K/uL (4.8-10.8)
[2019-06-05] MEDS ORDERED: CLINDAMYCIN PHOS 900 MG/6 ML VIAL IV SCH (06:00)
[2019-06-05 06:39] LABS: Alanine Aminotransferase 42 U/L (12-78); Albumin Globulin Ratio 0.8 (0.9-2); Albumin Level 2.7 gm/dl (3.4-5.0); Alkaline Phosphatase 64 U/L (45-117); Aspartate Aminotransferase 34 U/L (15-37); BUN Creatinine Ratio 13.7 (10-20); Bilirubin Direct < 0.1 mg/dl (0-0.2); Bilirubin,Total 0.6 mg/dl (0.2-1); Blood Urea Nitrogen 8 mg/dl (7-18); Calcium 8.3 mg/dl (8.5-10.1); Carbon Dioxide 24 mmol/L (21-32); Chloride 109 mmol/L (98-107); Creatinine Clr Calc Pharmacy 113.5 ml/min; Est GFR (African American) 128.6; Est GFR (Non-African American) 110.9; Globulin 3.2 gm/dl (2.5-4.0); Glucose 110 mg/dl (70-99); Potassium 3.9 mmol/L (3.5-5.1); Sodium 140 mmol/L (136-145); Total Protein 5.9 gm/dl (6.4-8.2)
[2019-06-05] MEDS: PANTOprazole 40 MG TAB PO SCH (08:39)
[2019-06-05] MEDS ORDERED: OXYCODONE/ACETAMINOPHEN 5mg/325mg TAB PO PRN (08:49)
--- NOTE | 2019-06-05 08:56 | Surgery Progress Note ---
Date of Service June 05, 2019 Assessment & Plan (1) Acute calculous cholecystitis: POD 1 lap stevie increase activity ok for d/c Supervising Physician Co-Signing Physician Notes Patient seen and examined, labs reviewed, agree with above. POD #1 lap scopic cholecystectomy for acute cholecystitis. Doing well this morning, tolerating regular diet. Abdomen soft, nontender. Incisions healing well. WBC elevated but expected postop day 1. Discharged home today, follow-up in 2 weeks, wound care instructions and activity restrictions reviewed. Return precautions given, call with questions or concerns. Subjective regular breakfast, pain control good Physical Exam Gastrointestinal (Abdomen): Inspection/Auscultation: + abdominal surgical incision (clean, dry); abdomen not distended Percussion/Palpation: abdomen soft Results & Data Vital Signs (Past 12 Hours) Vital Signs Temp Pulse Pulse Resp BP Pulse Ox 06/05/19 07:35 36.7 C 56 L 20 113/69 96 06/05/19 03:35 36.8 C 60 16 114/69 97 06/04/19 23:50 37 C 83 16 116/61 95 06/04/19 21:25 37.0 C 61 20 119/68 95 PG Care Time/CCT Total # of Minutes Spent Total Time Spent with Patient: Total time spent is greater than 50% in coordination of care (as documented) at patient's floor/unit and/or counseling patient:
--- NOTE | 2019-06-05 10:17 | Discharge Summary ---
Date of Service June 05, 2019 Admission HPI Per Admitting Provider 48 y/o female presented to the ED with a sudden onset of 9/10 mid chest and RUQ abdominal pain. There was no radiation to the left arm or the neck. She is noticing nausea at this time, but has had no vomiting. She had a similar episode 2 weeks prior, but symptoms resolved by am. She has had an intentional weight loss of 50 lbs. No F/C, cough, SOB, dysuria, or urinary frequency. Primary Care Provider: Alisha Nuñez MD Principal Diagnosis Acute cholecystitis Discharge Exam Constitutional WD/WN, vitals as above cooperative and comfortable Eyes + anicteric sclerae ENMT external ear and nose normal, oropharynx normal Neck normal visual inspection and trachea midline Respiratory normal respiratory effort, lungs clear to auscultation Cardiovascular RRR, no murmur, no edema Gastrointestinal (Abdomen) Percussion/Palpation: abdomen soft; abdomen nontender, no guarding and abdomen not rigid surgical port site wounds were visualized and are clean, dry without signs of infection, no erythema or increase in warmth. Musculoskeletal Head/Neck/Chest: normocephalic and head atraumatic Skin no rashes, warm and dry Neurologic moves all extremities and awake Discharge Data Allergies Allergy/AdvReac Type Severity Reaction Status Date / Time Penicillins Allergy Intermediate hives Verified 06/04/19 05:06 aspirin AdvReac Mild nose bleeds Verified 06/04/19 05:06 Consultations 06/04/19 06:04 ED Decision to Admit Stat 06/04/19 14:49 Consult General Surgery Routine Procedures Performed Operation Date: 06/04/19 11:35 Actual Procedures p Laparoscopic Cholecystectomy(Not Applicable) - Franko Layne DO, FACS Ordered Studies 06/04/19 04:57 US gallbladder Urgent 06/04/19 07:31 MR MRCP Stat Hospital Course (1) Abdominal pain, RUQ (right upper quadrant): 48F here for acute severe RUQ pain with evidence of "1.1 cm calculus within the gallbladder neck versus cystic duct" on US, which required lap stevie for resolution, after MRCP was negative. She did well post op this morning, handled breakfast without difficulty. Her pain was managed with IV morphine pre-op. There was no noted complications. Noted course of care: Fluid hydration Pain control (morphine PRN, tylenol) Has a gallstone 1.1mm in cystic duct. MRCP was normal DVT ppx: Had SCDs while awaiting possible surgery CODE STATUS: FULL DISPO: MED/SURG Other medical problems: Asthma-continue rescue inhaler Migraines-hold excedrin Total Time Total Time Spent Total Time Spent (In Minutes): 30 Total Time Includes: Examination of the Patient, Discharge Planning, Medication Reconciliation and Communication With Other Providers Discharge Plan Discharge Items Patient Disposition: Home - Self-Care Reason For Visit: RUQ PAIN Discharge Diagnosis: Acute cholecystitis Activity: Per Instructions section Lifting: No more than 10 pounds Bathing Comment: you may shower starting today Exercise/Sports: Wait until after follow-up appointment Non-emergency contact: Surgeon Call non-emergency contact if: you have any medication questions, your pain is not controlled, you have a fever, your temperature is above 101.5 and your wound has increased redness Follow-up/Referrals: Franko Layne DO, FACS [Physician] - (Please follow up in clinic within 1- 2 weeks for a post operative follow up. You may call the office sooner if you have any questions/concerns) Alisha Nuñez MD [Primary Care Provider] - Diet: Regular Addtl Attending Provider Instructions: See below Addtl Trackwalker Provider Instructions: You had a cholecystectomy performed for a diseased gallbladder. You will need to contact the surgeons office for follow up appointment, contact information provided. Please also call your PCPs office to make appointment for hospital follow up. Please contact your Primary Care Provider or go to the ED if you have vomiting, worsening abdominal pain, fever. Pending Studies at Discharge: No Stand-Alone Forms: Call Back Authorization, [facility], [facility], Work/School Release (Inpt) Medications and DC Order Prescriptions: New hydrocodone-acetaminophen [Miles] 5-325 mg tablet 1 - 2 tab PO Q4H PRN (Reason: pain, initial therapy) Qty: 15 RF: 0 Continued albuterol sulfate 2.5 mg /3 mL (0.083 %) solution for nebulization 2.5 mg inhalation DIRECTED PRN (Reason: Shortness Of Breath Or Wheezing) RF: 0 albuterol sulfate 90 mcg/actuation HFA aerosol inhaler 2 puff inhalation Q4 PRN (Reason: Shortness Of Breath Or Wheezing) RF: 0 Excedrin Migraine 250-250-65 mg Tablet 2 tab PO Q6H PRN (Reason: Migraine Headache) RF: 0 Discharge Orders: Discharge Order (Routine); Ordered 06/05/19 Ordered By: Arturo Galeano Admission Data Admit Date/Time: 06/04/19 06:19 Attending Provider: Deniz Zambrano Admit Provider: Emory Schaffer Primary Care Provider: Alisha Nuñez Other Providers: Franko Layne ; Emory Schaffer Other Interventions: Discharge Summary Assessment (RN) Last Done: 06/05/19 14:22 DC Date/Time DO NOT enter until pt leaves facility: 06/05/19 14:41 Supervising Physician Co-Signing Physician Notes Attending attestation Pt seen and examined in concert with Dr. Galeano. In agreement with the documented findings as noted in the resident documentation with any exceptions or additions as noted here. Postprocedural pain well controlled. Passing flatus and feeling well overall. Reports no f/c. On examination, diffusely TTP abdomen mildly with visible well healing incision sites of the abdomen. S1/S2 nl RRR no MCG. CTAB Acute cholecystitis s/p lap stevie - tolerating POI. Continue pain control per surgical recommendations and follow with PCP. Else see resident documentation as noted. Resident Activity Tracking Resident Involvement: Resident Care Provided Care Provided: Adult Hospital Medicine
--- NOTE | 2019-06-05 12:28 | Anesthesiology Progress Note ---
Date of Service June 05, 2019 Anesthesia Post Procedure Vital Signs Vital Signs: Temp Pulse Pulse Pulse Resp BP Pulse Ox 06/05/19 07:35 36.7 C 56 L 20 113/69 96 06/05/19 03:35 36.8 C 60 16 114/69 97 06/04/19 23:50 37 C 83 16 116/61 95 06/04/19 21:25 37.0 C 61 20 119/68 95 06/04/19 19:30 36.6 C 57 L 16 119/68 96 06/04/19 19:28 36.7 C 67 20 115/66 97 06/04/19 18:20 36.8 C 55 L 16 122/53 L 100 06/04/19 18:00 50 L 18 131/55 L 100 06/04/19 17:50 36.8 C 58 L 15 114/62 98 06/04/19 17:40 60 20 121/56 L 100 06/04/19 17:30 59 L 16 127/51 L 100 06/04/19 17:20 36.3 C L 67 22 123/70 100 06/04/19 15:40 37.0 C 60 14 113/42 L 96 06/04/19 14:54 36.4 C L 55 L 20 108/68 97 Notes Mental Status: alert / awake / arousable and participated in evaluation Nausea / Vomiting: adequately controlled Pain: adequately controlled Airway Patency, RR, SpO2: stable & adequate BP & HR: stable & adequate Hydration State: stable & adequate
== END 2019-06-05 14:41 | disposition home or self-care (01) ==
LOC: ED 04:38 → 3N 04:38 → SUATTDRO 06:19 → 3N 06:34